=== PATIENT | male | born 1995 | race Caucasian/White ===

== ENCOUNTER 2018-06-02 13:38 | Emergency (ER) | payer OTHER ==
[~2018-06-02] VITALS: Ht 185.4 cm; Wt 81.6 kg
[2018-06-02 13:42] VITALS: Ht 185.4 cm; Wt 81.6 kg
[2018-06-02 15:31] VITALS: BP 121/65
== END 2018-06-02 15:31 | disposition home or self-care (01) ==
LOC: ED 13:38
DX: R51 Headache (principal); R11.2 Nausea with vomiting, unspecified; R19.7 Diarrhea, unspecified; E86.0 Dehydration
CPT/HCPCS: J1885; J7030